=== PATIENT | female | born 1995 | race Caucasian/White ===

== ENCOUNTER 2016-07-23 10:16 | Emergency (ER) | payer BC ==
[2016-07-23 10:43] VITALS: BP 108/59
--- NOTE | 2016-07-23 12:10 | UC ---
Eye Complaint HPI - HPI Summary HPI Summary: Left eye redness, swelling, pain, blurriness, & yellow drainage since last night. no trauma. no contacts. + allergies/congestion. no visual disturbance. - History of Current Complaint Chief Complaint: UCEye Stated Complaint: LEFT EYE COMPLAINT Time Seen by Provider: 07/23/16 12:01 Hx Last Menstrual Period: 05/05/16 - Allergies/Home Medications Allergies/Adverse Reactions: Allergies Allergy/AdvReac Type Severity Reaction Status Date / Time Avocado Allergy Severe Swelling Verified 07/23/16 10:34 Of Face,Lips,& Throat Pineapple Allergy Severe Swelling Verified 07/23/16 10:34 Of Face,Lips,& Throat Home Medications: Home Medications Fexofenadine (NF) [Dulce (NF)] 60 mg PO BEDTIME 07/23/16 [History Confirmed ] Levonorgestrel-Ethinyl Estradi [Quartette 42-21-21-7 Days] 1 tab PO BEDTIME 09/03 [History Confirmed 07/23/16] Sertraline* [Zoloft*] 75 mg PO BEDTIME 07/23/16 [History Confirmed 07/23/16] PMH/Surg Hx/FS Hx/Imm Hx Previously Healthy: Yes - Surgical History Surgical History: None - Family History Known Family History: Negative: Cardiac Disease, Diabetes - Social History Alcohol Use: Occasionally Substance Use Type: None Smoking Status (MU): Never Smoked Tobacco Review of Systems Constitutional: Negative Skin: Negative Eyes: Drainage, Photophobia, Other - crusted shut on left this AM. no pain ENT: Negative Respiratory: Negative Cardiovascular: Negative Gastrointestinal: Negative Genitourinary: Negative Motor: Negative Neurovascular: Negative Musculoskeletal: Negative Neurological: Negative Psychological: Negative All Other Systems Reviewed And Are Negative: Yes Physical Exam Triage Information Reviewed: Yes Appearance: Well-Appearing, No Pain Distress, Well-Nourished Vital Signs: Initial Vital Signs Temp 99.2 F 07/23/16 10:35 Pulse 89 07/23/16 10:35 Resp 16 07/23/16 10:35 BP 108/59 07/23/16 10:35 Pulse Ox 98 07/23/16 10:35 Vital Signs Reviewed: Yes Eyes: Positive: Discharge - watrey d/c on left. upper and lower lids mildly swollen. no bruising, no erythema. Mild scleral and conjunctival injection on left. right side nml ENT Exam: Normal ENT: Positive: Pharynx normal, TMs normal. Negative: Pharyngeal erythema Dental Exam: Normal Neck exam: Normal Neck: Positive: Supple, Nontender, No Lymphadenopathy Respiratory Exam: Normal Respiratory: Positive: Chest non-tender, Lungs clear, Normal breath sounds Cardiovascular Exam: Normal Cardiovascular: Positive: RRR, No Murmur, Pulses Normal Abdomen Description: Positive: Nontender, Soft Musculoskeletal Exam: Normal Neurological Exam: Normal Psychological Exam: Normal Skin Exam: Normal Eye Complaint Course/Dx - Differential Dx/Diagnosis Differential Diagnosis/HQI/PQRI: Conjunctivitis Provider Diagnoses: left conjunctivitis Discharge - Discharge Plan Condition: Stable Disposition: HOME Prescriptions: Gentamicin 0.3% OPHTH.SOLN* 1 drop LEFT EYE Q4H #1 btl Patient Education Materials: Conjunctivitis (ED) Referrals: Non Staff,Doctor [Primary Care Provider] - Additional Instructions: Avoid eye make up x 5 days to avoid re-infection through contamination. You can follow up at [facility] in 3-4 days.
== END 2016-07-23 12:22 | disposition home or self-care (01) ==
LOC: UCCORT 10:16
DX: H10.9 Unspecified conjunctivitis (principal)
CPT/HCPCS: 99202; G0463